=== PATIENT | female | born 1975 | race Caucasian/White ===

== ENCOUNTER 2017-02-26 13:23 | Outpatient (CLI) | payer OTHER ==
--- OUTSIDE RECORDS SUMMARY | 2017-02-26 13:30 | XMS | Clinical Summary ---
:1975 Author Organization [facility] Address [address] [place] [address] Phone Care Team Providers Name Role Phone , Primary Care Provider Unavailable Allergies Not on File Current Medications Not on file Active Problems Not on file Social History Tobacco Use Types Packs/Day Years Used Date Never Assessed Sex Assigned at Date Recorded Not on file Last Filed Vital Signs Not on file Plan of Treatment Not on file Results Not on filefrom Last 3 Months
[2017-02-26] MEDS ORDERED: Iopamidol 370 76% 100 ML VIAL ONE (15:02)
--- NOTE | 2017-02-26 17:46 | CT ---
ABDOMEN CT WITH CONTRAST PELVIC CT WITH CONTRAST: Date: 02/26/17 HISTORY: Dysuria. Hematuria. Nausea and vomiting x8 months. COMPARISON: None. TECHNIQUE: An abdomen and pelvis CT are performed with IV contrast. Enteric contrast was not administered. Thomas nal reformatted images are submitted for interpretation. FINDINGS: ABDOMEN CT: Lung bases are clear. Heart size is normal. No significant pericardial fluid. Descending thoracic ao rta and abdominal aorta have a normal caliber. No periaortic fat stranding. Intra and extrahepatic portal vein is patent. Pancreas, spleen, and left adrenal gland are unremarkable. Indeterminate 1.2 x 1.0 cm nodule in the right adrenal gland with attenuation coefficient of 47 Hounsfield units. Diffuse hypoattenuation of the liver due to hepatic steatosis. Subtle hyperdensity in the lumen of the gallbladder which may represent a small stone or sludge. No evidence of cholecystitis. No gastrohepatic, retrocrural, or periportal lymphadenopathy. No mesenteric mass, lymphadenopathy, free air, or free fluid. Limited evaluation of the alimentary canal due to lack of oral contrast. No evidence of bowel obstru ction. Ileocecal junction is normal. Normal caliber appendix. Scattered fecal material in the colon. No evidence of colonic obstruction. There is symmetric enhancement of the kidneys. Bilaterally, no obstructive uropathy. PELVIC CT: Uterus demonstrates hypoattenuation in the endometrium. Correlate clinically. There appears to be an exophytic solid focus involving the left aspect of the uterus, near the cornea, measuring approxima tely 2.4 x 1.5 cm, incompletely evaluated. There is a well circumscribed hypodensity in the left adn exa measuring 3.2 x 4.1 cm with an attenuation coefficient of 22 Hounsfield units. Left ovarian cyst is favored. No pelvic lymphadenopathy, free air, or free fluid. There are no osteoblastic or osteolytic lesions. IMPRESSION: 1. Indeterminate right adrenal lesion. 2. Possible uterine leiomyoma. Possible left ovarian cyst. Better interrogation with pelvic MRI is recommended. POS: MICHELLE
== END 2017-02-26 13:24 | disposition home or self-care (01) ==
LOC: CT 13:23
PROVIDERS: ATTEND Nurse Practitioner Family
DX: R30.0 Dysuria (principal); R82.4 Acetonuria; R31.9 Hematuria, unspecified; F41.0 Panic disorder [episodic paroxysmal anxiety]; I10 Essential (primary) hypertension; F41.8 Other specified anxiety disorders; R11.2 Nausea with vomiting, unspecified; E27.8 Other specified disorders of adrenal gland
CPT/HCPCS: 74177; 80053; 80306; 83036; 84443; 85007; 85027; 87086

== ENCOUNTER 2018-03-02 09:03 | Observation (INO) | payer OTHER ==
[2018-03-02 10:56] VITALS: BMI 30.7
[2018-03-02] MEDS ORDERED: Ondansetron ODT 4 MG TAB PO PRN (11:58)
[2018-03-02] MEDS ORDERED: Loperamide HCl 2 MG CAP PO PRN (11:58)
[2018-03-02] MEDS ORDERED: Ondansetron HCl/PF 4 MG/2 ML Vial IVP PRN (11:58)
[2018-03-02] MEDS ORDERED: Bisacodyl 5 MG TAB PO PRN (11:58)
[2018-03-02] MEDS ORDERED: Zolpidem Tartrate 5 MG TAB PO PRN (11:58)
[2018-03-02] MEDS ORDERED: Acetaminophen 325 MG TAB PO PRN (11:58)
[2018-03-02] MEDS ORDERED: HYDROcodone/Acetaminophen 5/325 mg Tablet PO PRN (11:58)
[2018-03-02] MEDS ORDERED: Calcium Carbonate 500 MG ChewTAB PO PRN (11:58)
[2018-03-02] MEDS ORDERED: traZODone HCl 50 MG TAB PO PRN (12:02)
--- NOTE | 2018-03-02 12:20 | SS ---
PRIMARY CARE PHYSICIAN: Susie Alexander M.D. REASON FOR ADMISSION: Transfer from [facility] Emergency Room to our hospital for acute pancreatitis an d anemia. HISTORY OF PRESENT ILLNESS: A 42-year-old female who was admitted at [facility] on Thursday fo r acute pancreatitis that was confirmed radiologically. She also had ultrasound of the gallbladder s ubsequently. The patient was treated conservatively for acute pancreatitis with IV fluid, n.p.o. sta tus and pain control with narcotics. Her lipase was smoothly going down and her pancreatitis gradual ly improving, and her pain was completely subsided today. During this period, the patient's CBC was showing that her hemoglobin was gradually dropping and that is why today physician taking care there was concerned about anemia and decided to send her to our h ospital for further evaluation. The patient was taking NSAID and that is why concern of GI bleed, but the patient did not have any madhu wel movement over there and the patient had rectal examination, which was also not showing any blood. The patient is hemodynamically stable. She does not have any epigastric abdominal pain. She does not have any hematochezia, melena, or hematemesis. The patient was sent to our hospital for anemia workup. When I saw this patient today, at that time, the patient is completely asymptomatic. She wants to eat. She has a tomorrow from her fami ly and that is why she has to go to attend . She tells me that she will do procedure whatever she needs as an outpatient basis, but she wants to see uniforms sales representative while in hospital. REVIEW OF SYSTEMS: Please see my HPI for pertinent positive and negative. All the review of systems reviewed and negative. Constitutional: Weight loss or gain, ability to conduct usual activities. Skin: Rash, itching. Eyes: Double vision, pain. ENT/Mouth: Nose bleeding, neck stiffness, pain, tenderness. Cardiovascular: Palpitations, dyspnea on exertion, orthopnea. Respiratory: Shortness of breath, wheezing, cough, hemoptysis, fever or night sweats. Gastrointestinal: Poor appetite, abdominal pain, heartburn, nausea, vomiting, constipation, or diarrhea. Genitourinary: Urgency, frequency, dysuria, nocturia. Musculoskeletal: Pain, swelling. Neurologic/Psychiatric: Anxiety, depression. Allergy/Immunologic: Skin rash, bleeding tendency. PAST MEDICAL HISTORY: Reviewed and negative. Recent admission at [facility] for acute pancrea titis. PAST SURGICAL HISTORY: Reviewed and negative. PAST PSYCHIATRIC HISTORY: Anxiety and depression. ALLERGIES: No known drug allergy. CURRENT HOME MEDICATIONS: Mobic 7.5 mg p.o. daily, trazodone 50 mg p.o. at bedtime p.r.n., venlafaxi ne ER 150 mg p.o. daily. FAMILY HISTORY: No strong family history of premature coronary artery disease, stroke or cancer. SOCIAL HISTORY: The patient denies any smoking. She denies any alcohol abuse. She denies any other illicit drug abuse. She is and lives at home with family. Complete emergency room record from [facility] reviewed. PHYSICAL EXAMINATION: VITAL SIGNS: Currently, temperature 97.9, pulse 107, respiratory rate 18, saturation 97% on room air , blood pressure 150/94, weight 185 pounds. GENERAL: The patient is currently alert, awake, no obvious acute distress. HEAD: Normocephalic, atraumatic. EYES: Pupils round, reactive to light. Extraocular muscle intact. ENT: Oropharynx within normal limits. Moist mucous membranes. No oral lesion, no pharyngeal erythe ma, no exudate. NECK: Supple, no JVD, no thyromegaly, no carotid bruit. No jugular venous distention. LUNGS: Clear to auscultation without any rhonchi or rales. CARDIAC: S1, S2 regular without any murmur. ABDOMEN: Soft, bowel sounds present, nontender, nondistended. No organomegaly, no mass, no suprapub ic tenderness. BACK: Unremarkable. No CVA tenderness. EXTREMITIES: Upper extremity: Passive movement of all joints are normal. Lower extremity: No elías a. Good distal pulsation. NEUROLOGIC: Nonfocal examination. LABORATORY DATA: CBC: WBC 4.1, hemoglobin is 7.3, platelet 105. Lipase 1009. CT abdomen showed ac rincon pancreatitis. Ultrasound of gallbladder showed cholelithiasis. IMPRESSION: 1. Acute pancreatitis, idiopathic, resolved. 2. Cholelithiasis. 3. Anemia, normocytic normochromic. 4. Anxiety and depression. 5. Obesity. PLAN: I will send CBC, CMP, lipase, anemia workup including B12, folate, ferritin, iron study, TIBC, occult blood in stool. Gastroenterology consultation. This patient does not want to stay in hospital because of a , which she has to attend tomorrow at 06:30. The patient is not interested in going for any kind of interventional procedure hester tacho carrillo in hospital. She prefers all these tests to be done on an outpatient basis. She understands all r isks and benefits. This patient may need outpatient laparoscopic cholecystectomy in view of pancreat itis with cholelithiasis based on ultrasound. All treatment at this point, the patient does not want to go for now. Based on her request, we will consider discharging her home later on. DATE OF ADMISSION: In our hospital, she was admitted on 03/02/2018. DATE OF DISCHARGE: She will be discharged on 03/02/2018. DISCHARGE DISPOSITION: Home. PRIMARY DISCHARGE DIAGNOSES: Treated for acute pancreatitis, cholelithiasis, anemia, unknown etiolog y. SECONDARY DISCHARGE DIAGNOSES: Anxiety, depression, obesity. PRIMARY PROCEDURES/OPERATIONS: None. RADIOLOGICAL INVESTIGATION: None, but she had all investigation done at [facility]. Please se e that record. SIGNIFICANT LABORATORY DATA: Please see [facility] record for significant labs. DISCHARGE MEDICATIONS: She will continue all her medication. We advised her to avoid NSAIDs. The p atient will get Protonix 40 mg p.o. daily and iron supplement. CONTRAINDICATIONS: None. CODE STATUS: FULL CODE. INPATIENT CONSULTATIONS: Dr. Vera will be consulted per patient request. DISCHARGE PLAN: Post hospital, the patient will follow up with primary care physician as well as Dr. Vera as instructed. HOSPITAL COURSE: Please see my HPI. The patient was admitted from [facility] for anemia niraj p. She was treated there for acute pancreatitis. Now, the patient does not want to stay in hospital for procedure. She prefers everything to be done as an outpatient basis. She understands all risks associated with her decision.
[2018-03-02 13:25] LABS: #Basophils 0.1 thou/uL (0.0-0.2); #Eosinphils 0.1 thou/uL (0.0-0.7); #Lymphocytes 0.9 thou/uL (1.20-3.40); #Monocytes 0.3 thou/uL (0.11-0.59); #Neutrophils 2.9 thou/uL (1.40-6.50); %Basophils 1.2 % (0.0-1.0); %Eosinophils 2.2 % (0.0-10.0); %Lymphocytes 21.3 % (21.0-51.0); %Monocytes 7.9 % (0.0-10.0); %Neutrophils 67.4 % (42.0-75.0); Hemoglobin 8.5 g/dL (12.0-16.0); Mean Corpuscular HGB CONC 31.7 g/dL (32.0-36.0); Mean Corpuscular Hemoglobin 28.2 pg (27.0-31.0); Mean Corpuscular Volume 88.8 fL (78.0-98.0); Mean Platelet Volume 9.4 fL (7.4-10.4); Platelet Count 123 thou/uL (130-400); RBC Distribution Width 21.5 % (11.5-14.5); White Blood Cell (WBC) Count 4.3 thou/uL (4.8-10.8)
[2018-03-02 13:47] LABS: CRP (Inflammatory) 6.67 mg/dL (= or < 0.5)
[2018-03-02 13:50] LABS: ALT (SGPT) 9 U/L (8-55); AST (SGOT) 24 U/L (5-34); Albumin 3.5 g/dL (3.5-5.0); Alkaline Phosphatase 86 U/L (40-150); Anion Gap 10 mmol/L (10-20); BUN (Urea Nitrogen) Less than 4 mg/dL (7.0-18.7); Bilirubin, Total 0.4 mg/dL (0.2-1.2); Calc. Creatinine Clearance 146 mL/min (70-130); Calcium 8.6 mg/dL (7.8-10.44); Carbon Dioxide 27 mmol/L (22-29); Cardiac Risk 2.2 (Less than 4.5); Chloride 99 mmol/L (98-107); Cholesterol 159 mg/dl (< 200 Desired); Estimated GFR-MDRD Greater than 90; Globulin 3.1 g/dL (2.4-3.5); Glucose 97 mg/dL (70-105); HDL Cholesterol 72 mg/dL (>60 Neg Risk); Iron 21 ug/dL (50-170); Iron Binding Capacity, Total 256 mcg/dL (265-497); LDL Cholesterol, Calculated 70 mg/dL; Lipase 436 U/L (8-78); Magnesium 1.2 mg/dL (1.6-2.6); Potassium 3.1 mmol/L (3.5-5.1); Protein, Total 6.6 g/dL (6.0-8.3); Sodium 133 mmol/L (136-145); Triglycerides 86 mg/dL (Less than 150)
[2018-03-02 13:54] LABS: Anisocytosis SLIGHT = 6-15 cells (100X) (0-5/hpf); MDiff Complete? YES; PLT Morphology Comment Appears Decreased; Polychromasia SLIGHT = 2-3 cells (100X) (0-2/hpf)
[2018-03-02 13:55] LABS: Phosphorus Less than 1.0 mg/dL (2.3-4.7)
[2018-03-02 14:23] LABS: Folate (Folic Acid) 5.7 ng/mL (7.0-31.4)
[2018-03-02] MEDS ORDERED: Magnesium Oxide 400 MG TAB PO SCH (14:30)
[2018-03-02] MEDS ORDERED: Potassium Chloride 20 MEQ TAB PO SCH (14:30)
[2018-03-02 15:50] VITALS: BP 144/95; TEMP 97.5
--- NOTE | 2018-03-02 22:37 | CON ---
DATE OF CONSULTATION: 03/02/2018 REASON FOR CONSULTATION: Pancreatitis, anemia. CONSULTING PHYSICIAN: Dr. Ramu Raya. HISTORY OF PRESENT ILLNESS: The patient is a 42-year-old female with past medical history of pancrea titis presenting with complaints of anemia. Per chart review per interview of the patient, the patie nt had acute onset of mid epigastric/right upper quadrant abdominal pain approximately 7 days ago. T he pain was sharp/stabbing in character radiated to the mid back and would reach a severity of 10/10. There were no clear exacerbating factors, but the pain was better with administration of narcotics after she sought healthcare assistance. With the increased severity of her abdominal/back pain, it p rompted her to seek assistance at [facility] urgent care [place] where she was diagnosed with acute pancr eatitis. She was subsequently placed on aggressive IV fluid resuscitation as well as n.p.o. status a nd narcotics with significant improvement in her symptoms. However, during the course of her stay, s he was noted to have a slightly decreasing H&H every day that was felt not to be due to a hemodilutio nal status. Given her decreasing H&H without any obvious signs of GI bleeding (does not complain of hematemesis, melena or hematochezia), she was subsequently transferred to [facility] for fur ther evaluation. On examination today, the patient states that she is completely asymptomatic with absolute resolution of her abdominal pain since being treated for acute pancreatitis. She currently denies any nausea, vomiting, fevers, chills, abdominal pain, shortness of breath, chest pain, melena, hematochezia, teodora temesis, dysphagia or odynophagia. However, upon further interview, she said she had been taking Mob ic 7.5 mg daily for the last year. She denies any use of steroids or recent antibiotic administratio n. REVIEW OF SYSTEMS: A 10-category review of systems was obtained with all responses negative except f or the pertinent positives as listed in the HPI. PAST MEDICAL HISTORY: None except for recent diagnosis of pancreatitis. PAST SURGICAL HISTORY: None. FAMILY HISTORY: Denies any GI malignancies or pancreatitis. SOCIAL HISTORY: Denies any tobacco or illicit drug use. She does state that she had a prior history of increased alcohol abuse as well as recent use of alcohol approximately 3-4 glasses of wine prior to the onset of her pancreatitis. OUTPATIENT MEDICATIONS: Mobic 7.5 mg daily, trazodone 50 mg at bedtime, venlafaxine ER 150 mg daily; however, she was also noted to have aripiprazole, as well as Tylenol #3 within her pharmaceutical ba g. PHYSICAL EXAMINATION: VITAL SIGNS: Temperature 97.9, pulse 107, blood pressure 150/94, respiratory rate 18, satting 97% on room air. GENERAL: Patient is lying in bed in no acute distress. Alert and oriented x4. HEENT: Neck is supple. No JVD or scleral icterus noted. CARDIOVASCULAR: Regular rate and rhythm. No discernible murmurs, gallops or rubs. RESPIRATORY: Clear to auscultation bilaterally with no discernible wheezes or rales. ABDOMEN: Normoactive bowel sounds, soft, nontender, nondistended. EXTREMITIES: No cyanosis, clubbing or edema. LABORATORY DATA: CBC with a white blood cell count 4.3, hemoglobin 8.5, hematocrit 26.6, glucose 123 . Chemistry with a sodium of 133, potassium 3.1, chloride 99, CO2 is 27, BUN less than 4, creatinine 0.67, glucose 97, AST 24, ALT 9, alkaline phosphatase 86, total bilirubin 0.4, lipase 436. Iron 21, TIBC 256, ferritin 101. Evaluation of labs obtained on her initial presentation at [facility] showe d her lipase to be 14,000, AST 66, ALT 19, alkaline phosphatase 77 and total bilirubin of 0.9. IMAGING DATA: Right upper quadrant abdominal ultrasound obtained on 02/27/2018 showed an 8 mm gallbl adder polyp or possible sludge ball within the gallbladder, but no evidence of cholecystitis. Common bile duct measured approximately 2.5 mm in diameter. ASSESSMENT AND PLAN: The patient is a 42-year-old female with no significant past medical history pr esenting with a recent diagnosis of acute pancreatitis and down trending H&H while being treated for her acute pancreatitis consistent with hemodilutional anemia. Anemia: The patient presented to [facility] approximately 1 week ago with acute onset of mid epigast thais/right upper quadrant abdominal pain that radiated to her mid back and reached a 10/10 in severity . Upon evaluation of her labs at that time, she was noted to have a significantly elevated lipase at 14,000 consistent with a diagnosis of acute pancreatitis and while she does have a right upper quadr ant ultrasound that shows a possible 8-mm gallbladder polyp/stone. Her liver function tests were not consistent with gallstone pancreatitis. At this point, the more likely reason for her pancreatitis would be her chronic alcohol use and binge alcohol use prior to this episode of pancreatitis; however , upon evaluation of her hemoglobin and hematocrit, over the course of her treatment for acute pancre atitis, she was given a significant amount of IV fluids, further contributing to hemodilutional proce ss resulting in a decrease in her H&H that was ultimately seen yesterday and today (she was on IV flu ids until approximately 12-24 hours ago). At this point, she does not endorse any evidence of GI ble eding, although she does have the risk factor of chronic NSAID use when coupled with SSRIs which coul d contribute to GI bleeding in the upper GI tract; however, given her up trending H&H at this time, t his is a little less likely. RECOMMENDATIONS: 1. We would discontinue all NSAIDs as they could potentially create peptic ulcer disease and bleedin g. We would transfer patient to ACETAMINOPHEN (no more than 3000 mg daily). 2. Strongly advised the patient against alcohol cessation in any form given the recent bouts of acut e pancreatitis. 3. Patient is stable enough to be discharged and can follow up in the GI clinic as an outpatient for followup on her anemia and pancreatitis. Please schedule a followup appointment in the GI clinic wi thin 3 weeks. We will sign off at this time. Please call with any additional questions.
[2018-03-03] MEDS ORDERED: Ferrous Sulfate 325 MG TAB PO SCH (08:00)
[2018-03-03] MEDS ORDERED: Venlafaxine HCl XR 150 MG CAP PO SCH (09:00)
== END 2018-03-02 17:30 | disposition home or self-care (01) ==
LOC: INTOOBSV 10:39 → T4-B 10:39
PROVIDERS: ADMIT Internal Medicine; ATTEND Internal Medicine
DX: K85.00 Idiopathic acute pancreatitis without necrosis or infection (principal); K80.20 Calculus of gallbladder without cholecystitis without obstruction; D64.9 Anemia, unspecified; E66.9 Obesity, unspecified; F41.8 Other specified anxiety disorders; Z79.899 Other long term (current) drug therapy; Z68.30 Body mass index [BMI] 30.0-30.9, adult
CPT/HCPCS: 36415; 80053; 80061; 82607; 82728; 82746; 83540; 83550; 83690; 83735; 84100; 85025; 86140; G0378

== ENCOUNTER → 2019-03-13 | Emergency (ER) | payer OTHER, SELFPAY | LOC: ERS 11:36 | DX: R10.9 Unspecified abdominal pain (principal) | CPT/HCPCS: 99283 ==